=== PATIENT | male | born 1965 | race Caucasian/White ===

== ENCOUNTER 2017-05-01 03:00 | Inpatient (IN) | payer OTHER ==
--- NOTE | ~2017-05-01 | DS ---
Unit #: [id number] #: [id number] Patient: NADEEM LUQUE [id number] [facility] [address] [place] [address] [id number] MR#: [id number] NAME: NADEEM LUQUE ROOM: [facility] Age: 52 Sex: M Admission Date: 05/01/2017 : 1965 Discharge Date: 05/05/2017 Attending Physician: Abdirashid Mills M.D. Primary Care Physician: Primary Care Physician No DISCHARGE SUMMARY REASON FOR ADMISSION Depression, psychosis. DIAGNOSTIC STUDIES LABORATORY RESULTS: Unremarkable. HOSPITAL COURSE The patient was admitted to inpatient unit on 05/01/2017 and discharged on 05/05/2017. The patient was treated on the inpatient unit with group therapy, individual therapy, medication management. The patient was responsive to treatment. Subsequently, the patient was discharged with a plan to follow up in outpatient program. DISCHARGE MEDICATIONS Celexa 20 mg daily for mood symptom, Desyrel 50 mg at bedtime for sleep, Vistaril 25 mg t.i.d. for anxiety. DISCHARGE DIAGNOSES Psychiatric: Major depressive disorder, recurrent, severe, with psychotic feature, F33.3. Secondary diagnosis: Deferred. Medical diagnosis: Hypertension, rheumatoid arthritis, stroke in 2014. Stressors: Psychosocial stressor. DISCHARGE INSTRUCTIONS The patient to follow up in outpatient clinic as per healthcare social worker. CONDITION ON DISCHARGE The patient was pleasant and cooperative. Denied any psychotic symptom or any suicidal ideation. PROGNOSIS Guarded. DIET AND ACTIVITY As tolerated. Dictated by... Abdirashid Mills M.D. Unit #: [id number] #: [id number] Patient: NADEEM LUQUE SZC/modl TD: 05/07/2017 02:21 JOB #: [id number] DISCHARGE SUMMARY Page 1 of 1 X Abdirashid Mills MD X DISCHARGE SUMMARY
--- NOTE | ~2017-05-01 | PN ---
Unit #: [id number] #: [id number] Patient: NADEEM LUQUE [id number] [facility] [address] [place] [address] [id number] I MR#: [id number] NAME: NADEEM LUQUE ROOM: P131 Age: 52 Sex: M Admission Date: 05/01/2017 : 1965 Attending Physician: Abdirashid Mills M.D. Admitting Physician: Abdirashid Mills M.D. Primary Care Physician: Primary Care Physician Mar NOLASCO PROGRESS NOTES DATE 05/02/2017 DISCUSSION Mr. Ames is a 52-year-old male seen on 05/02/2017. Patient interviewed. Chart reviewed. Obtained information from nursing staff. Patient reported feeling sad, depressed, anxious, nervous. Patient compliant with medication but still isolative, guarded, flat affect, passive SI. Complete review of system unremarkable. MENTAL STATUS EXAMINATION General appearance, patient dressed casually. Attention span, concentration fair. Oriented in time, place and person. Mood and affect sad, depressed, withdrawn, isolative, guarded, seclusive. Recent and remote memory poor. Insight and judgement poor. DIAGNOSIS Major depressive disorder, recurrent, severe. ASSESSMENT/PLAN Advised to continue with current medication and therapeutic protocol. If needed, consider further adjustment of medication. Dictated by... Nicolas Thomas/elvis TD: 05/02/2017 20:39 JOB #: [id number] Unit #: [id number] #: [id number] Patient: NADEEM LUQUE PE[facility] PROGRESS NOTES Page 1 of 1 X Abdirashid Mills MD X PROGRESS NOTE
--- NOTE | ~2017-05-01 | HP ---
Unit #: [id number] #: [id number] Patient: NADEEM LUQUE [id number] [place] [address] [id number] I MR#: [id number] NAME: NADEEM LUQUE ROOM: P131 Age: 52 Sex: M Admission Date: 05/01/2017 : 1965 Attending Physician: Abdirashid Mills M.D. Admitting Physician: Abdirashid Mills M.D. Primary Care Physician: Primary Care Physician No HISTORY AND PHYSICAL HISTORY OF PRESENT ILLNESS The patient is a 52-year-old male admitted to [address] [place] [address] on 05/01/2017 for suicidal ideations. PAST MEDICAL HISTORY 1. Low back pain. 2. Left leg pain. 3. Arthritis. PAST SURGICAL HISTORY Left eye. SOCIAL HISTORY He draws [employer]. He lives with his sister. He denies alcohol, tobacco, and drug use. FAMILY MEDICAL HISTORY Noncontributory. ALLERGIES No known drug allergies. CURRENT MEDICATIONS The patient is not on any home medications. REVIEW OF SYSTEMS CONSTITUTIONAL: No fever or chills. HEENT: Denies any sore throat, ear pain or runny nose. CARDIOVASCULAR: Denies chest pain, irregular heart rhythm or palpitations. CHEST: Denies shortness of breath or cough. No hemoptysis. GASTROINTESTINAL: Denies nausea, vomiting, diarrhea or chronic constipation. ENDOCRINE: Denies history of increased thirst or urination. No recent significant weight loss or gain. GENITOURINARY: Denies dysuria, frequency, or hematuria. SKIN: Denies any rashes. HEMATOLOGIC: Denies history of increased bleeding or bruising. MUSCULOSKELETAL: Denies any hot, swollen joints. No generalized muscle pain. NEUROLOGIC: Denies problems with vision or speech. No frequent, severe headaches. No numbness, tingling or weakness in any extremities. Denies loss of bladder or bowel control. Unit #: [id number] #: [id number] Patient: NADEEM LUQUE PHYSICAL EXAM GENERAL: He is awake, alert and oriented in no acute distress. VITAL SIGNS: Temperature 97.8, heart rate 67, respiration 18, blood pressure 133/88. SKIN: Warm and dry without rash or lesion. HEENT: Normocephalic. TMs not viewed. Oral and nasal passages clear. Conjunctivae clear. PERRLA. EOMs intact. NECK: Supple without lymphadenopathy or thyromegaly. HEART: Regular rate and rhythm without murmur. LUNGS: Clear. ABDOMEN: Soft, nontender. : Not done. EXTREMITIES: No evidence of cyanosis, clubbing or edema. Moves all without focal deficit. NEUROLOGICAL: Grossly within normal limits. Cranial Nerves: II: Visual armenta are intact. III, IV AND : Extraocular movements are intact. Pupils are equal, round and reactive to light. V: Facial sensation is grossly normal. VII: Facial movements and expression are normal. VIII: Auditory acuity grossly intact. IX, X: Uvula is midline. Phonation is normal. XI: Patient shrugs shoulders and turns head normally. XII: Tongue protrudes in the midline. Sensory and Motor Function: Sensory and motor sensation is grossly normal. Motor: moves all extremities well. IMPRESSION 1. Psychiatric admission. 2. Low back pain. 3. Left leg pain. 4. Arthritis. RECOMMENDATIONS Psychiatric per psychiatrist. MEDICAL: No contraindication to participate in facility activities. MEDICAL PROGNOSIS Good. MEDICAL CONDITION Stable. Dictated by... Vimal Gavin/lorena TD: 05/01/2017 23:12 JOB #: [id number] Unit #: [id number] #: [id number] Patient: NADEEM LUQUE HISTORY AND PHYSICAL Page 1 of 1 X JAMEE JEAN APRN HISTORY AND PHYSICAL
--- NOTE | ~2017-05-01 | PN ---
Unit #: [id number] #: [id number] Patient: NADEEM LUQUE [id number] [facility] [address] [place] [address] [id number] I MR#: [id number] NAME: NADEEM LUQUE ROOM: P131 Age: 52 Sex: M Admission Date: 05/01/2017 : 1965 Attending Physician: Abdirashid Mills M.D. Admitting Physician: Abdirashid Mills M.D. Primary Care Physician: Primary Care Physician No [facility] PROGRESS NOTES DATE OF SERVICE 05/03/2017 DISCUSSION Mr. Ames is a 52-year-old male seen on 05/03/2017. Patient interviewed, chart reviewed. Obtained information from nursing staff. Patient was compliant and cooperative. Mood sad, dysphoric, but reports making progress. Still isolative, guarded. Complete review of systems unremarkable. MENTAL STATUS EXAMINATION General appearance, patient dressed casually. Attention span and concentration fair. Oriented to time, place and person. Mood and affect sad, dysphoric. Speech monotone. Thought process concrete. Patient denied any thoughts of harming self or others. Recent and remote memory poor. Insight and judgement poor. DIAGNOSIS Mood disorder NOS. ASSESSMENT/PLAN Advise to continue with current medication and therapeutic protocol. If needed consider further adjustment of medication. Dictated by... Nicolas Thomas/lorena TD: 05/05/2017 03:15 JOB #: [id number] [facility] PROGRESS NOTES Page 1 of 1 X Abdirashid Mills MD X PROGRESS NOTE
--- NOTE | ~2017-05-01 | PN ---
Unit #: [id number] #: [id number] Patient: NADEEM LUQUE [id number] [facility] [address] [place] [address] [id number] I MR#: [id number] NAME: NADEEM LUQUE ROOM: P131 Age: 52 Sex: M Admission Date: 05/01/2017 : 1965 Attending Physician: Abdirashid Mills M.D. Admitting Physician: Abdirashid Mills M.D. Primary Care Physician: Primary Care Physician Mar NOLASCO PROGRESS NOTES DATE OF SERVICE 05/04/2017 DISCUSSION Mr. Ames is a 52-year-old male seen on 05/04/2017. Patient interviewed, chart reviewed. Obtained information from nursing staff. Patient's vital signs stable 97.3, 47, 20, 114/74. Patient reported that he would like to be on Neurontin as he was on this medication earlier. Patient was able to maintain safe behavior but still isolative, guarded, flat affect. Complete review of systems unremarkable. MENTAL STATUS EXAMINATION General appearance, patient dressed casually. Attention span and concentration fair. Oriented to time, place and person. Mood and affect sad, dysphoric. Speech monotone. Thought process concrete. Patient denied any thoughts of harming self or others but guarded. Recent and remote memory poor. Insight and judgement poor. DIAGNOSES Bipolar mood disorder NOS ASSESSMENT/PLAN Advise to continue with current medication and therapeutic protocol. If needed consider further adjustment of medication. Dictated by... Nicolas Thomas/lorena TD: 05/06/2017 04:19 JOB #: [id number] Unit #: [id number] #: [id number] Patient: NADEEM LUQUE [facility] PROGRESS NOTES Page 1 of 1 X Abdirashid Mills MD PROGRESS NOTE
--- NOTE | ~2017-05-01 | PA ---
Unit #: [id number] #: [id number] Patient: NADEEM LUQUE [id number] [facility] [address] [place] [address] [id number] I MR#: [id number] NAME: NADEEM LUQUE ROOM: P131 Age: 52 Sex: M Admission Date: 05/01/2017 : 1965 Date of Assessment: Attending Physician: Abdirashid Mills M.D. Admitting Physician: Abdirashid Mills M.D. Primary Care Physician: Primary Care Physician No PSYCHIATRIC ASSESSMENT DATE OF SERVICE 05/01/2017. INFORMANTS The patient reliability, fair informant and chart reliability, good. CHIEF COMPLAINT Suicidal ideation. HISTORY OF PRESENT ILLNESS Mr. Ames is a 52-year-old male, presented with the above-mentioned complaint. The patient presented to the emergency room with suicidal ideation and wanted to end it all. The patient reported lot of pain, tired of hurting. Reported he sees snakes crawling in front of him, which are not there; hearing voices; trying to hurt himself. The patient receives SSI, was employed until 2014 and had a stroke. The patient reported that he has completed seventh grade. Lives off and on with his sister. The patient lost his father in 2007. The patient reported poor support system. History of stroke, hypertension, and rheumatoid arthritis. The patient reported sleeping 2 hours. Denied any use of any drugs or alcohol. Feeling hopeless and worthless. Needing inpatient admission at this time for psychiatric stabilization. PAST PSYCHIATRIC HISTORY Unknown for any history of any previous treatment. No history of any suicide attempt or any inpatient treatment. FAMILY HISTORY AND SOCIAL HISTORY The patient has some support from his sister. No history of abuse. No history of any legal problems. MEDICAL HISTORY Remarkable for history of hypertension and rheumatoid arthritis and stroke in 2015. ALLERGIES No known drug allergies. MEDICATION HISTORY The patient currently on no medication. SUBSTANCE ABUSE HISTORY None. Unit #: [id number] #: [id number] Patient: NADEEM LUQUE REVIEW OF SYSTEMS HEENT: Eyes, clear. Ears, nose, mouth, and throat; clear. CARDIOVASCULAR: Unremarkable. RESPIRATORY: Unremarkable. GI: Unremarkable. : Unremarkable. SKIN: Unremarkable. LYMPH NODE: Unremarkable. NEUROLOGIC: Unremarkable. ENDOCRINE: Unremarkable. HEMATOLOGIC: Unremarkable. ALLERGIC/IMMUNOLOGIC: Unremarkable. MUSCULOSKELETAL: Muscle strength and tone, no atrophy or abnormal movement. Gait normal. MENTAL STATUS EXAMINATION CONSTITUTIONAL: Measurement of vital signs; temperature 97.8, heart rate 67, respiratory rate 18, oxygen saturation 100%, and blood pressure 133/88. GENERAL APPEARANCE: The patient dressed casually. The patient did not show any facial deformity. MUSCULOSKELETAL: Please see above. PSYCHIATRIC EXAMINATION Description of speech; slow in volume and rate and nonspontaneous. Description of thought process, goal directed. Description of association, intact. Description of abnormal psychotic thinking; the patient reported hallucination, auditory and visual as mentioned above; mood lability; depression; and suicidal ideation. Denied any homicidal ideation. Description of the patient's judgment: Concerning everyday activity, poor. Social situation, poor. Concerning psychiatric condition, poor. Complete mental status examination; oriented in time, place, and person. Recent and remote memory, fair. Attention span and concentration, fair. Language, able to name object and repeat phrases. Fund of knowledge, aware of current event and passive vocabulary intact. Mood and affect, sad and dysphoric. Insight and judgment, fair to poor. ASSETS AND LIABILITIES Assets, the patient is articulate and able to take care of his ADL. Liability, history of depression and suicidal ideation. ADMITTING DIAGNOSES Psychiatric: Major depressive disorder, recurrent, severe, with psychotic feature, F33.3 and rule out substance abuse disorder. Secondary diagnosis: Deferred. Medical diagnoses: Hypertension, rheumatoid arthritis, and stroke in 2015. Stressors: Psychosocial stressors. PSYCHIATRIC PLAN AND TREATMENT GOAL AND DISCHARGE PLAN 1. Advised to admit the patient on the inpatient unit. Provide safe, supportive, and structured environment. 2. Ordered labs; CBC, CMP, UA, and UDS. Unit #: [id number] #: [id number] Patient: NADEEM LUQUE 3. Precaution for self-harm. 4. Plan to consider medication such as Celexa for depression, Desyrel for sleep, and Vistaril for anxiety. If needed, consider medication for psychosis. We will give a try with the current combination of medication. The patient to attend group therapy, individual therapy, and family session if possible and structured milieu. Treatment goal to attain euthymic mood, gain insight into his problem, and learn coping skills. DISCHARGE PLAN Plan to stabilize the patient and consider followup in outpatient program. ESTIMATED LENGTH OF STAY 3 to 5 days. Dictated by... Nicolas Thomas/amaury TD: 05/01/2017 14:57 JOB #: [id number] PSYCHIATRIC ASSESSMENT Page 1 of 1 X Abdirashid Mills MD X PSYCHIATRIC ASSESSMENT
[2017-05-02 09:41] LABS: BASOPHIL% 0.3 % (0-2.5); EOSINOPHIL# 0.1 X10e3 (0-0.7); EOSINOPHIL% 1.3 % (0.0-7.0); HEMATOCRIT 40.9 % (38.0-50.0); LYMPHOCYTE# 1.8 X10e3 (1.0-3.5); MEAN CELL VOLUME 90.5 FL (83-96); MEAN CORPUSCULAR HEMOGLOBIN 31.1 PG (28-34); MEAN CORPUSCULAR HGB CONC 34.3 g/dL (30-36); MONOCYTE# 0.6 X10e3 (0-1.0); MONOCYTE% 8.2 % (3.0-12.0); NEUTROPHIL# 4.9 X10e3 (1.5-7.1); NEUTROPHIL% 66.2 % (40-75); PLATELET COUNT 142 X10e3 (140-420); RED BLOOD COUNT 4.52 X10e (3.90-5.60); RED CELL DISTRIBUTION WIDTH 13.9 % (11.0-15.5); WHITE BLOOD COUNT 7.4 X10e3 (4.0-10.5)
[2017-05-02 09:43] LABS: DIFF IND NO
[2017-05-02 09:58] LABS: THYROID STIMULATING HORMONE 0.74 uIU/ml (0.34-5.60)
[2017-05-02 10:04] LABS: ALBUMIN SERUM 3.4 g/dL (3.5-5.0); BILIRUBIN,TOTAL 0.9 mg/dL (0.2-2.0); CALCIUM SERUM 8.4 mg/dL (8.4-10.2); GLOM FILT RATE Estimated 85.6 mL/min (>60); POTASSIUM 4.1 mmol/L (3.5-5.1); PROTEIN TOTAL SERUM 5.6 g/dL (6.0-8.3)
[2017-05-02 10:05] LABS: FREE THYROXIN (T4) 0.95 ng/dL (0.58-1.64)
== END 2017-05-05 14:00 | disposition home or self-care (01) | DRG 885 ==
LOC: P1S 04:03
PROVIDERS: Psychiatry & Neurology Psychiatry
DX: F33.3 Major depressive disorder, recurrent, severe with psychotic symptoms (principal); M54.5 Low back pain
CPT/HCPCS: 80053; 84439; 84443; 85025